=== PATIENT | female | born 1965 | race Caucasian/White ===

== ENCOUNTER 2022-12-29 08:31 | Outpatient (CLI) | payer OTHER, SELFPAY ==
--- NOTE | ~2022-12-29 | MR_ITS ---
MRI of the left femur CLINICAL HISTORY: Left thigh pain TECHNIQUE: Coronal T1-weighted and STIR images, axial T1-weighted, T1-weighted fat-sat, and STIR imag es, and sagittal T1-weighted and STIR images were performed. FINDINGS: Visualized bone marrow signals are unremarkable. Bilateral hip joint spaces are essentially intact. No hip joint effusion identified. There is focal soft tissue edema/inflammatory change in the soft tissues just inferior to the left is chial tuberosity, and extending inferiorly along the superficial fascial plane of the adductor melvina (series 3 images 14-16). No drainable fluid collection evident. No mass evident. Signal intensity of the musculature is unremarkable. Visualized tendons are intact. IMPRESSION: Nonspecific soft tissue edema/inflammatory change in the subcutaneous soft tissues just inferior to t he left ischial tuberosity and extending inferiorly along the superficial fascial plane of the adduct or melvina muscle. Please see details above. No mass lesion or fluid collection evident. Reviewed, dictated and finalized at location . [employer]ESIOLOGISTS' ASSISTANT IMPRESSION: Nonspecific soft tissue edema/inflammatory change in the subcutaneous soft tiss ues just inferior to the left ischial tuberosity and extending inferiorly along the superficial fascial plane of the adductor melvina muscle. Please see detail s above. No mass lesion or fluid collection evident.
== END 2022-12-29 08:32 | disposition home or self-care (01) ==
PROVIDERS: Visit Provider Orthopaedic Surgery
DX: M79.652 Pain in left thigh (principal); R60.9 Edema, unspecified
CPT/HCPCS: 73721